=== PATIENT | female | born 1970 | race Caucasian/White ===

== ENCOUNTER 2016-03-16 16:08 | Emergency (ER) | payer OTHER ==
[~2016-03-16] VITALS: Ht 154.9 cm; Wt 76.7 kg
[~2016-03-16 16:08] MED LIST: ERYTHROMYC1 APPLICAT LEFT EYE; NAPROSYN500 MG PO; ULTRAM50 MG PO; WELLBUTRIN PO
[2016-03-16 19:52] LABS: HEMATOCRIT 37.8 % (36.0-46.0); MCH 34.8 PG (29.0-34.0); MCHC 34.1 G/DL (30.0-36.0); MCV 101.9 FL (83-99); PLATELET COUNT 296 K/uL (156-360); RBC DIS.WIDTH-CV 13.2 % (11.8-14.6); RBC DIS.WIDTH-SD 47.5 % (39-53); RED BLOOD COUNT 3.71 M/uL (3.80-5.20); WHITE BLOOD COUNT 5.3 K/uL (4.1-10.2)
[2016-03-16 20:00] LABS: CHLORIDE 106 mEq/L (99-109); POTASSIUM 4.2 mEq/L (3.7-5.4); SODIUM 138 mEq/L (136-147)
[2016-03-16 20:02] LABS: GLUCOSE 94 mg/dL (70-99)
[2016-03-16 20:03] LABS: ANION GAP 9 MEQ/L (2-14)
[2016-03-16 20:04] LABS: TOTAL BILIRUBIN 0.2 mg/dL (0.0-1.0)
[2016-03-16 20:06] LABS: ALKALINE PHOSPHATASE 76 IU/L (3-129); GFR ESTIMATE (CALCULATED) > 59 mL/min/
[2016-03-16 20:07] LABS: UREA NITROGEN (BUN) 11 mg/dL (9-23)
[2016-03-16 20:11] LABS: TROP-I INTERPRETATION NEGATIVE; TROPONIN-I < 0.01 ng/mL (0.0-0.30)
[2016-03-16 21:29] VITALS: BP 130/70
== END 2016-03-16 21:30 | disposition home or self-care (01) ==
LOC: EME 16:08
PROVIDERS: Physician Assistant
DX: R07.9 Chest pain, unspecified (principal); J45.909 Unspecified asthma, uncomplicated; E78.5 Hyperlipidemia, unspecified
CPT/HCPCS: 71020; 80053; 84484; 85027; 93005; 99281; 99285

== ENCOUNTER 2016-04-10 12:02 | Emergency (ER) | payer OTHER ==
[~2016-04-10] VITALS: Ht 154.9 cm; Wt 75.8 kg
[2016-04-10 13:54] LABS: INFLUENZA A VIRAL ANTIGEN POSITIVE; INFLUENZA B VIRAL ANTIGEN NEGATIVE
[2016-04-10] MEDS ORDERED: TAMIFLU75 MG PO (14:24)
[2016-04-10] MEDS ORDERED: TESSALON200 MG PO (14:26)
[2016-04-10 14:47] VITALS: BP 95/51
== END 2016-04-10 14:48 | disposition home or self-care (01) ==
LOC: EME 12:02
PROVIDERS: Nurse Practitioner Family
DX: J10.1 Influenza due to other identified influenza virus with other respiratory manifestations (principal)
CPT/HCPCS: 71020; 87502; 94640; 99281; 99284

== ENCOUNTER → 2016-11-26 | Outpatient (CLI) | payer OTHER ==
[~2016-11-26] VITALS: Ht 156.2 cm; Wt 78.0 kg
[~2016-11-26] MED LIST changes: +ACIPHEX20 MG PO; +ADVIL200 MG PO; +ELAVIL50 MG PO; +TAMIFLU75 MG PO; +TESSALON200 MG PO
== END | disposition home or self-care (01) ==
LOC: AMB 09:01
PROC: 0DJ08ZZ Inspection of Upper Intestinal Tract, Via Natural or Artificial Opening Endoscopic (ICD-10-PCS; principal; 2016-11-26)
DX: K22.10 Ulcer of esophagus without bleeding (principal); K44.9 Diaphragmatic hernia without obstruction or gangrene; K21.9 Gastro-esophageal reflux disease without esophagitis; R49.0 Dysphonia; R09.02 Hypoxemia; J95.88 Other intraoperative complications of respiratory system, not elsewhere classified; Y83.8 Other surgical procedures as the cause of abnormal reaction of the patient, or of later complication, without mention of misadventure at the time of the procedure; Z80.1 Family history of malignant neoplasm of trachea, bronchus and lung; Z80.42 Family history of malignant neoplasm of prostate; Z88.0 Allergy status to penicillin; F41.8 Other specified anxiety disorders; Z53.09 Procedure and treatment not carried out because of other contraindication
CPT/HCPCS: J2250; J3010

== ENCOUNTER 2017-05-03 13:16 | Emergency (ER) | payer OTHER ==
[~2017-05-03] VITALS: Ht 162.6 cm; Wt 79.6 kg
[2017-05-03 13:36] LABS: APPEARANCE SL.HAZY ((CLEAR)); BILIRUBIN NEGATIVE; BLOOD MODERATE; COLOR YELLOW ((YELLOW)); GLUCOSE (STRIP) NEGATIVE; KETONES NEGATIVE; LEUKOCYTES NEGATIVE; NITRITE NEGATIVE; PROTEIN (STRIP) 30; SPECIFIC GRAVITY 1.028 (1.000-1.030); UROBILINOGEN 0.2 MG/DL (0.2-1.0)
[2017-05-03 13:39] LABS: HEMATOCRIT 33.8 % (36.0-46.0); HEMOGLOBIN 11.5 G/DL (11.9-15.5); MCH 34.2 PG (29.0-34.0); MCV 100.6 FL (83-99); PLATELET COUNT 304 K/uL (156-360); RBC DIS.WIDTH-CV 14.2 % (11.8-14.6); RBC DIS.WIDTH-SD 52.1 % (39-53); RED BLOOD COUNT 3.36 M/uL (3.80-5.20); WHITE BLOOD COUNT 9.5 K/uL (4.1-10.2)
[2017-05-03 13:42] LABS: BACTERIA RARE /HPF; EPITHELIAL CELLS 3+ /HPF; MUCUS TRACE /LPF; RED BLOOD CELLS 30-40 /HPF (0-5); UCUL ADDED? YES
[2017-05-03 13:47] LABS: ALBUMIN 3.6 g/dL (3.2-4.8); CHLORIDE 105 mEq/L (99-109); SODIUM 135 mEq/L (136-147)
[2017-05-03 13:49] LABS: GLUCOSE 117 mg/dL (70-99); TOTAL PROTEIN 7.9 g/dL (6.4-8.3)
[2017-05-03 13:51] LABS: TOTAL BILIRUBIN 0.5 mg/dL (0.0-1.0)
[2017-05-03 13:53] LABS: ALKALINE PHOSPHATASE 91 IU/L (3-129); CREATININE 0.8 mg/dL (0.6-1.3); GFR ESTIMATE (CALCULATED) > 59 mL/min/
[2017-05-03 13:54] LABS: UREA NITROGEN (BUN) 13 mg/dL (9-23)
[2017-05-03 13:55] LABS: AST (GOT) 27 IU/L (2-34)
[2017-05-03 13:56] LABS: ALT (GPT) 20 IU/L (3-49)
[2017-05-03 14:04] LABS: QUANTITATIVE HCG < 4.0 MIU/ML
[2017-05-03 15:23] LABS: LIPASE 19 U/L (1.0-51.0)
[2017-05-03] MEDS ORDERED: BENTYL20 MG PO (17:37)
[2017-05-03] MEDS ORDERED: ZOFRAN ODT4 MG PO (17:37)
[2017-05-03] MEDS ORDERED: MOTRIN800 MG PO (17:38)
[2017-05-03 17:46] VITALS: BP 105/58
== END 2017-05-03 17:47 | disposition home or self-care (01) ==
LOC: EME 13:16
DX: K29.70 Gastritis, unspecified, without bleeding (principal); R19.7 Diarrhea, unspecified; F32.9 Major depressive disorder, single episode, unspecified; Z98.890 Other specified postprocedural states; Z90.49 Acquired absence of other specified parts of digestive tract; Z88.0 Allergy status to penicillin
CPT/HCPCS: 74176; 80053; 81003; 83690; 84702; 85027; 87086; 99281; 99284; J0500; J1885

== ENCOUNTER → 2017-09-09 | Outpatient (CLI) | payer OTHER ==
[~2017-09-09] VITALS: Ht 154.9 cm; Wt 77.6 kg
[~2017-09-09] MED LIST changes: +BENTYL20 MG PO; +CYANOCOBAL1000 MCG/2 IM; +MOTRIN800 MG PO; +TYLENOL EXTRA500 MG PO; +ZANTAC150 MG PO; +ZOFRAN ODT4 MG PO
== END | disposition home or self-care (01) ==
LOC: AMB 10:08
PROVIDERS: Anesthesiology
PROC: 0DBE8ZX Excision of Large Intestine, Via Natural or Artificial Opening Endoscopic, Diagnostic (ICD-10-PCS; principal; 2017-09-09)
DX: R10.10 Upper abdominal pain, unspecified (principal); R19.7 Diarrhea, unspecified; K21.9 Gastro-esophageal reflux disease without esophagitis; E53.8 Deficiency of other specified B group vitamins; Z88.0 Allergy status to penicillin
CPT/HCPCS: 81025; 88305

== ENCOUNTER 2017-09-24 21:57 | Emergency (ER) | payer OTHER ==
[~2017-09-24] VITALS: Ht 154.9 cm; Wt 77.0 kg
[2017-09-24 22:22] LABS: HEMATOCRIT 32.8 % (36.0-46.0); HEMOGLOBIN 11.1 G/DL (11.9-15.5); MCH 33.7 PG (29.0-34.0); MCHC 33.8 G/DL (30.0-36.0); MCV 99.7 FL (83-99); PLATELET COUNT 306 K/uL (156-360); RBC DIS.WIDTH-CV 13.8 % (11.8-14.6); RBC DIS.WIDTH-SD 50.8 % (39-53); RED BLOOD COUNT 3.29 M/uL (3.80-5.20)
[2017-09-24 22:35] LABS: CHLORIDE 106 mEq/L (99-109); POTASSIUM 3.6 mEq/L (3.7-5.4); SODIUM 139 mEq/L (136-147)
[2017-09-24 22:36] LABS: GLUCOSE 85 mg/dL (70-99)
[2017-09-24 22:40] LABS: CREATININE 0.8 mg/dL (0.6-1.3); GFR ESTIMATE (CALCULATED) > 59 mL/min/
[2017-09-24 22:41] LABS: UREA NITROGEN (BUN) 11 mg/dL (9-23)
[2017-09-24 22:49] LABS: TROP-I INTERPRETATION NEGATIVE; TROPONIN-I < 0.01 ng/mL (0.0-0.30)
[2017-09-25 00:16] LABS: QUANTITATIVE HCG < 4.0 MIU/ML
[2017-09-25] MEDS ORDERED: IBU600 MG PO (02:34)
[2017-09-25 02:44] VITALS: BP 114/56
== END 2017-09-25 02:45 | disposition home or self-care (01) ==
LOC: EME 21:57
DX: R07.89 Other chest pain (principal); M79.89 Other specified soft tissue disorders; I44.0 Atrioventricular block, first degree; Z90.49 Acquired absence of other specified parts of digestive tract; Z88.0 Allergy status to penicillin
CPT/HCPCS: 71046; 80048; 84484; 84702; 85027; 85379; 93005; 99281; 99285